=== PATIENT | female | born 1945 | race Caucasian/White ===

== ENCOUNTER 2017-04-03 08:00 | Outpatient (CLI) | payer MEDICARE ==
[2017-04-03 15:09] LABS: BASOPHILS % (AUTO) 0.4 %; EOSINOPHILS # (AUTO) 0.1 10^3/uL (0.0-0.7); EOSINOPHILS % (AUTO) 1.6 %; LYMPHOCYTES # (AUTO) 1.1 10^3/uL (1.5-3.5); LYMPHOCYTES % (AUTO) 26.3 %; MEAN CORPUSCULAR HEMOGLOBIN 31.1 pg (27.0-31.0); MEAN CORPUSCULAR HGB CONC 34.3 g/dL (32.0-36.0); MEAN CORPUSCULAR VOLUME 90.7 fL (81.0-99.0); MEAN PLATELET VOLUME 10.7 fL (7.9-10.8); MONOCYTES # (AUTO) 0.3 10^3/uL (0.0-1.0); MONOCYTES % (AUTO) 8.1 %; NEUTROPHILS # (AUTO) 2.7 10^3/uL (1.5-6.6); NEUTROPHILS % (AUTO) 63.6 %; NUCLEATED RED BLOOD CELLS AUTO 0.1 /100WBC; RED BLOOD COUNT 4.19 10^6/uL (4.20-5.40); RED CELL DISTRIBUTION WIDTH 12.3 % (12.0-15.0); UNCORRECTED WHITE BLOOD COUNT 4.2 x10^3/uL; WHITE BLOOD COUNT 4.2 x10^3/uL (4.8-10.8)
[2017-04-03 15:25] LABS: ALBUMIN/GLOBULIN RATIO 1.3 (1.0-2.2); BILIRUBIN,TOTAL 0.6 mg/dL (0.2-1.0); BUN - BLOOD UREA NITROGEN 21 mg/dL (6-20); CALCIUM 9.5 mg/dL (8.5-10.3); CARBON DIOXIDE - CO2 27 mmol/L (21-32); CHLORIDE 103 mmol/L (101-111); CHOL/HDL RATIO 3.2 (<4.4); CHOLESTEROL 257 mg/dL; CREATININE 0.7 mg/dL (0.4-1.0); GFR - MDRD 83 (>89); GLUCOSE 93 mg/dL (70-100); HDL CHOLESTEROL 80 mg/dL; SODIUM 139 mmol/L (135-145); TOTAL PROTEIN 6.8 g/dL (6.7-8.2); TRIGLYCERIDES 82 mg/dL; VLDL CHOLESTEROL 16 mg/dL
== END 2017-04-03 08:01 | disposition home or self-care (01) ==
LOC: LAB.R 08:00
PROVIDERS: ATTEND Nurse Practitioner Primary Care
DX: Z00.00 Encounter for general adult medical examination without abnormal findings (principal); Z51.81 Encounter for therapeutic drug level monitoring; R63.5 Abnormal weight gain; M19.90 Unspecified osteoarthritis, unspecified site; E78.5 Hyperlipidemia, unspecified
CPT/HCPCS: 80053; 80061; 85025

== ENCOUNTER 2017-04-09 07:51 | Outpatient (CLI) | payer MEDICARE ==
--- NOTE | 2017-04-10 10:17 | Mammography Report ---
DIGITAL SCREENING MAMMOGRAM: 04/09/2017 COMPARISON: 09/01/2015, 04/20/2014, 04/03/2013, 12/27/2011, 12/22/2010, 12/22/2009. TECHNIQUE: Bilateral digital CC and MLO projections. FINDINGS: There are scattered fibroglandular densities. There is no dominant mass, architectural dis tortion, skin thickening, suspicious microcalcifications or interval change. IMPRESSION: NEGATIVE. BIRADS CATEGORY 1-NEGATIVE. RECOMMENDATION: SUGGEST RETURN TO ROUTINE SCREENING IN 12 MONTHS. STANDARD QUALIFYING STATEMENTS 1. This examination was reviewed with the aid of Computer-Aided Detection (CAD). 2. A negative or benign imaging report should not delay biopsy if clinically suspicious findings are present. Consider surgical consultation if warranted. More than 5% of cancers are not identified by i maging. 3. Dense breasts may obscure an underlying neoplasm. JOB #: [id number] EXT JOB #:[id number]
== END 2017-04-09 07:52 | disposition home or self-care (01) ==
LOC: DI 07:51
PROVIDERS: ATTEND Nurse Practitioner Primary Care
DX: Z12.31 Encounter for screening mammogram for malignant neoplasm of breast (principal)
CPT/HCPCS: 77067

== ENCOUNTER 2017-07-26 07:41 | Outpatient (CLI) | payer MEDICARE ==
[2017-07-26 08:50] LABS: CHOLESTEROL 196 mg/dL; HDL CHOLESTEROL 66 mg/dL; LDL CHOLESTEROL,CALCULATED 102 mg/dL; LDL/HDL RATIO 1.5 (<4.4); VLDL CHOLESTEROL 28 mg/dL
== END 2017-07-26 07:42 | disposition home or self-care (01) ==
LOC: LAB 07:41
PROVIDERS: ATTEND Nurse Practitioner Primary Care
DX: E78.5 Hyperlipidemia, unspecified (principal); Z51.81 Encounter for therapeutic drug level monitoring
CPT/HCPCS: 36415; 80061; 83721

== ENCOUNTER 2018-12-25 07:42 | Outpatient (CLI) | payer MEDICARE ==
[2018-12-25 08:51] LABS: ALBUMIN 3.9 g/dL (3.2-5.5); ALBUMIN/GLOBULIN RATIO 1.3 (1.0-2.2); ALKALINE PHOSPHATASE 56 IU/L (42-121); ALT ALANINE AMINOTRANSFERASE 19 IU/L (10-60); AST ASPARTATE AMINOTRANSFERASE 24 IU/L (10-42); BILIRUBIN,TOTAL 0.5 mg/dL (0.2-1.0); BUN - BLOOD UREA NITROGEN 20 mg/dL (6-20); CALCIUM 9.2 mg/dL (8.5-10.3); CARBON DIOXIDE - CO2 26 mmol/L (21-32); CHLORIDE 97 mmol/L (101-111); CHOLESTEROL 270 mg/dL; CREATININE 0.7 mg/dL (0.4-1.0); GFR - MDRD 82 (>89); GLUCOSE 106 mg/dL (70-100); HDL CHOLESTEROL 68 mg/dL; LDL CHOLESTEROL,CALCULATED 173 mg/dL; LDL/HDL RATIO 2.5 (<4.4); SODIUM 134 mmol/L (135-145); TOTAL PROTEIN 6.9 g/dL (6.7-8.2); VLDL CHOLESTEROL 29 mg/dL
--- NOTE | 2018-12-26 11:46 | Ultrasound Report ---
Reason: INGUINAL MASS Procedure Date: 12/25/2018 Accession Number: [id number] / [id number] Procedure: US - Pelvic Limited or F/U CPT Code: FULL RESULT: EXAM: LIMITED PELVIS ULTRASOUND EXAM DATE: 12/25/2018 08:15 AM. CLINICAL HISTORY: Inguinal mass. COMPARISON: None. TECHNIQUE: Real-time scanning was performed of the right lower quadrant with static images obtained. FINDINGS: Targeted evaluation of the left inguinal region was performed. Radiation Control Technician static images acquired and reviewed. At the site of clinical concern, there is a prominent 1.4 x 0.8 x 1.2 cm lymph node with thickened cortex. No abnormal focal thickening or calcifications. No additional mass, collection or bulky adenopathy. IMPRESSION: 1. Prominent 1.4 x 0.8 x 1.2 cm lymph node with mildly thickened cortex noted at the site of clinical concern. 2. No additional mass, collection or bulky adenopathy. RADIA
== END 2018-12-25 07:43 | disposition home or self-care (01) ==
LOC: DI 07:42
PROVIDERS: ATTEND Nurse Practitioner
DX: R59.0 Localized enlarged lymph nodes (principal); R19.00 Intra-abdominal and pelvic swelling, mass and lump, unspecified site; E78.5 Hyperlipidemia, unspecified
CPT/HCPCS: 36415; 76857; 80053; 80061; 83721

== ENCOUNTER 2020-08-11 09:18 | Outpatient (CLI) | payer MEDICARE ==
--- NOTE | 2020-08-11 16:08 | XRAY Report ---
PROCEDURE: Knee 3 View RT INDICATIONS: PAIN IN RT KNEE TECHNIQUE: 3 views of the right knee(s) were acquired. COMPARISON: None. FINDINGS: Bones: No fractures or dislocations. No suspicious bony lesions. Mild tricompartmental osteoarthrit ic degenerative change. Soft tissues: No joint effusion. No suspicious soft tissue calcifications. IMPRESSION: Mild right knee tricompartmental osteoarthritis. Reviewed by: Lana Saravia MD, PhD on 08/11/2020 4:06 PM PDT Approved by: Lana Saravia MD, PhD on 08/11/2020 4:06 PM PDT Station ID: [id number]
== END 2020-08-11 09:19 | disposition home or self-care (01) ==
LOC: DI 09:18
PROVIDERS: ATTEND Registered Nurse
DX: M17.11 Unilateral primary osteoarthritis, right knee (principal)

== ENCOUNTER 2021-06-30 08:50 | Outpatient (CLI) | payer MEDICARE ==
[2021-06-30 09:22] LABS: BASOPHILS % (AUTO) 0.3 %; EOSINOPHILS # (AUTO) 0.1 10^3/uL (0.0-0.7); EOSINOPHILS % (AUTO) 3.2 %; HCT - HEMATOCRIT 40.5 % (37.0-47.0); HGB - HEMOGLOBIN 13.7 g/dL (12.0-16.0); LYMPHOCYTES # (AUTO) 1.2 10^3/uL (1.5-3.5); LYMPHOCYTES % (AUTO) 35.7 %; MEAN CORPUSCULAR HEMOGLOBIN 30.8 pg (27.0-31.0); MEAN CORPUSCULAR HGB CONC 33.8 g/dL (32.0-36.0); MEAN PLATELET VOLUME 10.7 fL (7.9-10.8); MONOCYTES # (AUTO) 0.3 10^3/uL (0.0-1.0); MONOCYTES % (AUTO) 7.9 %; NEUTROPHILS # (AUTO) 1.8 10^3/uL (1.5-6.6); NEUTROPHILS % (AUTO) 52.9 %; PLT - PLATELET COUNT 208 10^3/uL (130-450); RED BLOOD COUNT 4.45 10^6/uL (4.20-5.40); WHITE BLOOD COUNT 3.4 x10^3/uL (4.8-10.8)
[2021-06-30 09:44] LABS: ALBUMIN 4.2 g/dL (3.2-5.5); ALBUMIN/GLOBULIN RATIO 1.4 (1.0-2.2); ALKALINE PHOSPHATASE 52 IU/L (42-121); ALT ALANINE AMINOTRANSFERASE 20 IU/L (10-60); AST ASPARTATE AMINOTRANSFERASE 22 IU/L (10-42); BILIRUBIN,TOTAL 0.6 mg/dL (0.2-1.0); BUN - BLOOD UREA NITROGEN 17 mg/dL (6-20); CALCIUM 9.2 mg/dL (8.5-10.3); CARBON DIOXIDE - CO2 27 mmol/L (21-32); CHLORIDE 101 mmol/L (101-111); CHOL/HDL RATIO 3.6 (<4.4); CHOLESTEROL 288 mg/dL; CREATININE 0.7 mg/dL (0.4-1.0); GFR - MDRD 82 (>89); GLUCOSE 98 mg/dL (70-100); HDL CHOLESTEROL 81 mg/dL; LDL CHOLESTEROL,CALCULATED 187 mg/dL; LDL/HDL RATIO 2.3 (<4.4); POTASSIUM 4.2 mmol/L (3.5-5.0); SODIUM 136 mmol/L (135-145); TOTAL PROTEIN 7.1 g/dL (6.7-8.2); TRIGLYCERIDES 101 mg/dL; VLDL CHOLESTEROL 20 mg/dL
== END 2021-06-30 08:51 | disposition home or self-care (01) ==
LOC: LAB 08:50
PROVIDERS: ATTEND Registered Nurse
DX: R42 Dizziness and giddiness (principal); E78.00 Pure hypercholesterolemia, unspecified
CPT/HCPCS: 36415; 80053; 80061; 83721; 84443; 85025

== ENCOUNTER 2021-06-30 09:30 | Outpatient (CLI) | payer MEDICARE | END 2021-06-30 09:31 | disposition home or self-care (01) | LOC: RT 09:30 | PROVIDERS: ATTEND Registered Nurse | DX: R42 Dizziness and giddiness (principal); E78.00 Pure hypercholesterolemia, unspecified | CPT/HCPCS: 36415; 80053; 80061; 83721; 84443; 85025; 93005 ==

== ENCOUNTER 2021-10-03 09:21 | Outpatient (CLI) | payer MEDICARE ==
--- NOTE | 2021-10-03 13:12 | Mammography Report ---
BILATERAL DIGITAL SCREENING MAMMOGRAM 3D/2D: 10/03/2021 CLINICAL: Family history of breast cancer. Routine screening. Comparison is made to exams dated: 04/09/2017 mammogram, 09/01/2015 mammogram, 04/20/2014 mammogram, 06/03/2012 mammogram, and 12/27/2011 mammogram - [facility]. There are scattered fib roglandular elements in both breasts. No significant masses, calcifications, or other findings are seen in either breast. There has been no significant interval change. IMPRESSION: NEGATIVE There is no mammographic evidence of malignancy. A 1 year screening mammogram is recommended. This exam was interpreted at Station ID: [id number]. NOTE: For mammograms, a report in lay terms will be sent to the patient. Approximately 15% of breast malignancies will not be visualized mammographically. In the management of a palpable breast mass, a negative mammogram must not discourage biopsy of a clinically suspicious lesion. Electronically Signed By: Jan Wren M.D., jr/yoli:10/03/2021 09:55:16 ACR BI-RADS Category 1: Negative 3341F PARENCHYMAL PATTERN: (A) - The breast(s) demonstrate(s) scattered fibroglandular densities. BI-RADS CATEGORY: (1) - 1 RECOMMENDATION: (ANNUAL) - Recommend routine annual screening mammography. 20221004 1 year screening LATERALITY: (B)
== END 2021-10-03 09:22 | disposition home or self-care (01) ==
LOC: DI.N 09:21
PROVIDERS: ATTEND Registered Nurse
DX: Z12.31 Encounter for screening mammogram for malignant neoplasm of breast (principal); Z80.3 Family history of malignant neoplasm of breast

== ENCOUNTER 2022-01-03 08:37 | Day surgery (SDC) | payer MEDICARE ==
--- NOTE | 2022-01-03 08:19 | ANESTHESIA ---
Pre-Anesthesia VS, & Labs - Diagnosis screening, positive cologuard - Procedure colonoscopy - NPO >8 hours Last Fluid Intake: am prep - Is Patient ?: No - Lab Results Lab results reviewed: Yes Home Medications and Allergies Home Medications: Ambulatory Orders Ibuprofen [Motrin] 600 mg PO Q6H PRN 12/26/21 Ibuprofen [Motrin] 600 mg PO Q6H PRN 12/26/21 Allergies/Adverse Reactions: Allergies Allergy/AdvReac Type Severity Reaction Status Date / Time No Known Drug Allergies Allergy Verified 12/26/21 14:10 Anes History & Medical History - Anesthetic History Anesthesia Complications: reports: No previous complications Family history of Anesthesia Complications: Denies Family history of Malignant Hyperthermia: Denies - Medical History Cardiovascular: reports: None Pulmonary: reports: None Gastrointestinal: reports: None Urinary: reports: None Neuro: reports: None Musculoskeletal: reports: None - Surgical History General: reports: Colonoscopy Exam General: Alert, Oriented x3, Cooperative Dental: WNL Mouth Openin Fingerbreadth Neck Mobility: Normal Mallampati classification: II Respiratory: Lungs clear, Normal breath sounds, No respiratory distress Cardiovascular: Regular rate Neurological: Normal speech Mental/Cognitive Status: Alert/Oriented X3, Normal for patient Cognitive Status: Within normal limits Plan Anesthesia Type: Total IV Consent for Procedure(s) Verified and Reviewed: Yes Code Status: Attempt Resuscitation ASA classification: 2-Mild systemic disease Is this case an emergency?: No
[2022-01-03] MEDS ORDERED: LACTATED RINGERS 1,000 ML IV ONE ×2 (09:14→10:28)
[2022-01-03] MEDS ORDERED: MIDAZOLAM 2 MG/2 ML VIAL ONE (09:56)
[2022-01-03 11:13] VITALS: BP 116/68
--- NOTE | 2022-01-03 12:02 | ANESTHESIA POST OP EVALUATION ---
Anesthesia Post Eval - Post Anesthesia Eval Vitals: Last Vital Signs Temp 36.1 C L 01/03/22 11:00 Pulse 70 01/03/22 11:00 Resp 16 01/03/22 11:00 BP 116/68 01/03/22 11:00 Pulse Ox 99 01/03/22 11:00 CV Function Including HR & BP: Stable Pain Control: Satisfactory Nausea & Vomiting: Negative Mental Status: Baseline Respiratory Status: Airway Patent Hydration Status: Satisfactory Anesthesia Complications: None
== END 2022-01-03 08:38 | disposition home or self-care (01) ==
LOC: SDS 08:37
PROVIDERS: ATTEND Surgery
PROC: 0DBK8ZZ Excision of Ascending Colon, Via Natural or Artificial Opening Endoscopic (ICD-10-PCS; principal; 2022-01-03 09:45)
DX: R19.5 Other fecal abnormalities (principal); K63.5 Polyp of colon; K64.8 Other hemorrhoids; K57.30 Diverticulosis of large intestine without perforation or abscess without bleeding
CPT/HCPCS: 45380; J7120

== ENCOUNTER 2023-10-21 07:50 | Observation (INO) | payer MEDICARE ==
--- NOTE | 2023-10-21 09:40 | ED Physician Documentation ---
History of Present Illness - Stated complaint Stated Complaint: LT WRIST LAC - Chief complaint Chief Complaint: Wound - History obtained from History obtained from: Patient - History of Present Illness Timing: How many weeks ago (1) Pain level max: 9 Pain level now: 9 - Additonal information Additional information: 78-year-old female presents to the emergency department complaining of redness, swelling and drainage to a wound on the left wrist. She states that a week ago her dogs were fighting, she went to separate them and sustained a laceration on the left wrist from a collar. She was seen at [facility] in [place]. She states that she had deep sutures placed and then superficial sutures placed. She states the next day she noted a red hot, swollen area. She went to the walk-in clinic and was given a dose of IM Rocephin and placed on oral Bactrim. She went back 2 days later had another dose of Rocephin. She states that today the area is more red, swollen, tender and has pus draining from the wound. 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 - Present Medications Home Medications: Ambulatory Orders Medication Instructions Recorded Confirmed Ibuprofen [Motrin] 600 mg PO Q6H PRN 12/26/21 10/21/23 Sulfamethox/Trimeth 800/160 1 tablet PO BID 10/21/23 10/21/23 [Bactrim Ds] - Allergies Allergies/Adverse Reactions: Allergies Allergy/AdvReac Type Severity Reaction Status Date / Time No Known Drug Allergies Allergy Verified 10/21/23 08:01 - Social History Does the pt smoke?: No Smoking Status: Never smoker Does the pt drink ETOH?: No Does the pt have substance abuse?: No - Immunizations Immunizations are current?: Yes - POLST Patient has POLST: No PD ED PE NORMAL - Vitals Vital signs reviewed: Yes - General General: Alert and oriented X 3, No acute distress - HEENT HEENT: Moist mucous membranes - Derm Derm: Warm and dry - Extremities Extremities: Other (Swelling and erythema to the dorsum of swelling and erythema to the volar aspect of the left wrist where the laceration was repaired. There is purulent drainage. Mild streaking up the arm. No pain in the deep spaces of the hand. No pain with movement of the fingers. Neurovascular intact.) - Neuro Neuro: Alert and oriented X 3 - Psych Psych: Normal mood, Normal affect Results - Vitals Vitals: Vital Signs - 24 hr 10/21/23 10/21/23 07:56 11:57 Temperature 36.4 C L Heart Rate 70 57 L Respiratory 20 20 Rate Blood Pressure 150/62 H 144/64 H O2 Saturation 100 98 Oxygen O2 Source Room air - Labs Labs: Microbiology 10/21/23 11:06 Wound Culture - Preliminary Arm - Left Laboratory Tests 10/21/23 10/21/23 09:44 09:44 WBC 4.5 L RBC 4.20 Hgb 12.9 Hct 38.2 MCV 91.0 MCH 30.7 MCHC 33.8 RDW 12.4 Plt Count 263 MPV 10.4 Neut # (Auto) 3.1 Lymph # (Auto) 0.9 L [place] # (Auto) 0.4 Eos # (Auto) 0.1 Baso # (Auto) 0.0 Absolute Nucleated RBC 0.00 Nucleated RBC % 0.0 Sodium 135 Potassium 4.4 Chloride 102 Carbon Dioxide 26 Anion Gap 7.0 BUN 18 Creatinine 0.9 Estimated GFR (MDRD) 61 L Glucose 108 H Calcium 9.9 Total Bilirubin 0.3 AST 32 ALT 32 Alkaline Phosphatase 64 Total Protein 7.5 Albumin 4.3 Globulin 3.2 Albumin/Globulin Ratio 1.3 Procedures - General procedure General procedure: L wrist - All sutures were removed. The wound was opened and irrigated with 250 mL of normal saline. Wound culture obtained. Xeroform was then placed over the open wound and a clean dressing was applied. PD Medical Decision Making - ED course Complexity details: reviewed results, re-evaluated patient, considered differential, d/w patient, d/w safety consultant ED course: Patient with an infected laceration to the left wrist. Discussed the case with Dr. Jacques, orthopedics who recommends removal of all sutures, bedside irrigation and leaving the wound open, covering with Xeroform. The sutures were removed, the wound was irrigated, Xeroform was applied. Given that she has been on antibiotics for a week including 2 doses of IM Rocephin and is continuing to worsen, we will place her in observation on IV vancomycin and Unasyn to ensure that she improves overnight. Wound culture was sent. Discussed the case with Dr. Ross, hospitalist who accepts. This document was made in part using voice recognition software. While efforts are made to proofread this document, sound alike and grammatical errors may occur. Departure - Departure Disposition: ED Place in Observation Clinical Impression: Wound infection Cellulitis Qualifiers: Site of cellulitis: extremity Site of cellulitis of extremity: upper extremity Laterality: left Qualified Code(s): L03.114 - Cellulitis of left upper limb Condition: Stable Discharge Date/Time: 10/21/23 13:07
[2023-10-21] MEDS: HYDROmorphone 1 MG/ML CARPUJECT IVP STA (09:57)
[2023-10-21 09:58] LABS: BASOPHILS % (AUTO) 0.2 %; EOSINOPHILS # (AUTO) 0.1 10^3/uL (0.0-0.7); EOSINOPHILS % (AUTO) 1.3 %; HCT - HEMATOCRIT 38.2 % (37.0-47.0); HGB - HEMOGLOBIN 12.9 g/dL (12.0-16.0); LYMPHOCYTES # (AUTO) 0.9 10^3/uL (1.5-3.5); LYMPHOCYTES % (AUTO) 20.5 %; MEAN CORPUSCULAR HEMOGLOBIN 30.7 pg (27.0-31.0); MEAN CORPUSCULAR HGB CONC 33.8 g/dL (32.0-36.0); MEAN PLATELET VOLUME 10.4 fL (7.9-10.8); MONOCYTES # (AUTO) 0.4 10^3/uL (0.0-1.0); MONOCYTES % (AUTO) 8.6 %; NEUTROPHILS # (AUTO) 3.1 10^3/uL (1.5-6.6); PLT - PLATELET COUNT 263 10^3/uL (130-450); RED CELL DISTRIBUTION WIDTH 12.4 % (12.0-15.0); WHITE BLOOD COUNT 4.5 x10^3/uL (4.8-10.8)
[2023-10-21 10:12] LABS: ALBUMIN 4.3 g/dL (3.2-5.5); ALBUMIN/GLOBULIN RATIO 1.3 (1.0-2.2); BILIRUBIN,TOTAL 0.3 mg/dL (0.2-1.0); CALCIUM 9.9 mg/dL (8.5-10.3); CREATININE 0.9 mg/dL (0.6-1.3); POTASSIUM 4.4 mmol/L (3.5-4.5); TOTAL PROTEIN 7.5 g/dL (6.4-8.9)
[2023-10-21] MEDS: LIDOCAINE-EPINEPH-TETRACAINE 3 ML SYRINGE TOP STA (10:33)
[2023-10-21] MEDS: AMPICILLIN/SULBACTAM 3 GM in SODIUM CHLORIDE 0.9% MINIBAG 100 ML IV STA (11:43)
--- NOTE | 2023-10-21 11:57 | PHARMACY PROGRESS NOTE ---
- Therapy Status Therapy status: Awaiting steady state Basis for treatment: Empirical Treatment indication: WOUND Trough goal: AUC 400-600 Concurrent antibiotics: UNASYN - JAMES Risk Risk level for Acute Kidney Injury: Moderate Acute Kidney Injury risk factors: Baseline CrCl <50 - Monitoring and Recommendation Clinical response to treatment: Lab Results 10/21/23 09:44 BUN 18 Creatinine 0.9 Estimated GFR (MDRD) 61 L Monitoring plan: Daily serum creatinine Next trough due (date/time): TBD, PRIOR TO 4TH DOSE Areas for additional monitoring: Therapy de-escalation based on culture results Pharmacy recommendation: Continue current regime (Initiate Vancomycin therapy at 1250mg Q24h with anticipated AUC of 460.)
[2023-10-21] MEDS ORDERED: SODIUM CHLORIDE FLUSH 0.9% 10 ML SYRINGE IVP PRN (12:51)
[2023-10-21] MEDS ORDERED: ONDANSETRON ODT 4 MG TABLET TL PRN (12:51)
[2023-10-21] MEDS ORDERED: oxyCODONE 5 MG TABLET PO PRN (12:51)
[2023-10-21] MEDS ORDERED: IBUPROFEN 400 MG TABLET PO PRN (12:51)
--- NOTE | 2023-10-21 12:59 | HISTORY & PHYSICAL EXAMINATION ---
Chief Complaint - Chief Complaint Chief Complaint: Patient left wrist pain and swelling History of Present Illness - Admitted From Admitted From:: ED - History Obtained From History obtained from: patient Exam Limitations: none - History of Present Illness HPI Comment/Other: 78-year-old female who presents to the emergency department about 8 days after sustaining an injury to her left wrist. She pulled apart 2 dogs that were fighting and as she the she sustained a laceration from a bracelet that was on her left arm. She went to the emergency department at [facility] in [place] immediately. At that time she had a double layer closure of this left wrist laceration. The next day she noted that the area around the laceration was red hot and swollen. She went to walk-in clinic at [facility] and was given an IM dose of Rocephin and placed on oral Bactrim. 2 days later she did not have improvement and went back for an additional dose of Rocephin she presented to the emergency department today with increasing pain redness swelling and purulent drainage from the wound. 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 Walks 4-5 miles every day. has family support from a daughter in [place]. - Substance History Use: Uses substance without health or social issues: NONE Dependence: Experiences withdrawal or developed tolerances: NONE - POLST Patient has POLST: No POLST Status: Full Code (Ever Kelly, daughter is DPOA) Meds/Allgy - Home Medications Home Medications: Ambulatory Orders Medication Instructions Recorded Confirmed Ibuprofen [Motrin] 600 mg PO Q6H PRN 12/26/21 10/21/23 Sulfamethox/Trimeth 800/160 1 tablet PO BID 10/21/23 10/21/23 [Bactrim Ds] - Allergies Allergies/Adverse Reactions: Allergies Allergy/AdvReac Type Severity Reaction Status Date / Time No Known Drug Allergies Allergy Verified 10/21/23 08:01 Review of Systems - Constitutional Constitutional: reports: Fatigue, Malaise. denies: Fever, Chills - Eyes Eyes: denies: Blurred vision - Ears, Nose & Throat Ears, Nose & Throat: denies: Ear pain, Vertigo - Cardiovascular Cariovascular: denies: Irregular heart rate - Respiratory Respiratory: denies: Cough - Gastrointestinal Gastrointestinal: denies: Abdominal pain, Diarrhea, Change in bowel habits - Genitourinary Genitourinary: denies: Dysuria - Musculoskeletal Musculoskeletal: reports: Other (left wrist painful, but able to move joint. no pain on flexion/extension, no pain on pronation or supination of her wrist.) - Integumentary Integumentary: reports: Other (redness of the skin around the laceration) - Neurological Neurological: denies: General weakness, Focal weakness, Numbness - Psychiatric Psychiatric: denies: Depression - Endocrine Endocrine: denies: Polyuria, Polydypsia - Hematologic/Lymphatic Hematologic/Lymphatic: denies: Bruising - All Other Systems All Other Systems: reports: Reviewed and negative Prior Level of Functionality: well. lives alone. takes care of her home and her dog. no assistive devices. no meds. Seedawna Mcdonald at Medical Exam - Vital Signs Vital Signs: Vital Signs x48h Temp Pulse Resp BP Pulse Ox 10/21/23 11:57 57 L 20 144/64 H 98 10/21/23 07:56 36.4 C L 70 20 150/62 H 100 - Physical Exam General Appearance: positive: No acute distress Eyes Bilateral: positive: Normal inspection ENT: positive: ENT inspection nml Neck: positive: Nml inspection Respiratory: positive: Chest non-tender, No respiratory distress, Breath sounds nml Cardiovascular: positive: Regular rate & rhythm Peripheral Pulses: positive: 2+ Abdomen: positive: No distention Skin: positive: Laceration (cm) (5cm lac with surrounding warmth and erythema. There is no pain on movement of the hand there is some lymphangitic streaking on the volar forearm.), Other Extremities: positive: Other (see skin exam, otherwise WNL) Neurologic/Psychiatric: positive: Oriented x3 Conclusion/Plan - Problem List (1) Wound infection Conclusion/Plan: Wound infection with cellulitis not improving in the outpatient setting. Toshia retana will be admitted for observation overnight. She will be placed on IV Unasyn every 6 hours. Additionally she will get a dose of vancomycin. Cultures of the wound were sent from the emergency department. This does not appear to be sepsis. The patient does not have a fever she does not have an elevated white blood cell count. She does not have any tachycardia or tachypnea. She appears well overall the wound has been opened and cultured and debrided. There is a dressing which was placed by the emergency department. I will take this down in the morning and further evaluate the wound. I think is reasonable that she will discharge home in the morning as we convert to oral antibiotics. - Lab Results Fish Bones: 10/21/23 09:44 10/21/23 09:44
[2023-10-21] MEDS: VANCOMYCIN INJ 1 GM, VANCOMYCIN INJ 250 MG in SODIUM CHLORIDE 0.9% 250 ML IV SCH (13:31)
[2023-10-21] MEDS: diphenhydrAMINE INJ 50 MG/ML VIAL IVP PRN (15:04)
--- NOTE | 2023-10-21 16:40 | PHARMACY PROGRESS NOTE ---
- Best Possible Medication History Admit Date and Time: 10/21/23 1311 Processed by: Pharmacy Medications reviewed in ED?: Yes Medication History completed: In progress Patient Interview: Pt unable to participate (PT SLEEPING) Secondary Source(s): Insurance records As the person ultimately responsible for medication therapy, providers are able to order a medication from an existing home medication list in [facility] via the "Reconcile Routine" prior to Confirmation of that medication by legal support assistant. Such practice is discouraged except when the physician, in their clinical judgment, deems that a medical need exists for a medication without regard to previous use.
[2023-10-21] MEDS: AMPICILLIN/SULBACTAM 1.5 GM in SODIUM CHLORIDE 0.9% MINIBAG 100 ML IV SCH (17:53)
[2023-10-21] MEDS: SODIUM CHLORIDE FLUSH 0.9% 10 ML SYRINGE IVP SCH (17:54)
[2023-10-21] MEDS: ACETAMINOPHEN 325 MG TABLET PO PRN (19:53)
[2023-10-22 05:08] LABS: BASOPHILS % (AUTO) 0.2 %; EOSINOPHILS # (AUTO) 0.1 10^3/uL (0.0-0.7); EOSINOPHILS % (AUTO) 2.4 %; HCT - HEMATOCRIT 34.6 % (37.0-47.0); LYMPHOCYTES # (AUTO) 1.3 10^3/uL (1.5-3.5); LYMPHOCYTES % (AUTO) 30.4 %; MEAN CORPUSCULAR HEMOGLOBIN 29.5 pg (27.0-31.0); MEAN CORPUSCULAR HGB CONC 31.8 g/dL (32.0-36.0); MEAN CORPUSCULAR VOLUME 92.8 fL (81.0-99.0); MONOCYTES # (AUTO) 0.4 10^3/uL (0.0-1.0); MONOCYTES % (AUTO) 10.1 %; NEUTROPHILS # (AUTO) 2.3 10^3/uL (1.5-6.6); NEUTROPHILS % (AUTO) 56.4 %; PLT - PLATELET COUNT 231 10^3/uL (130-450); RED BLOOD COUNT 3.73 10^6/uL (4.20-5.40); RED CELL DISTRIBUTION WIDTH 12.4 % (12.0-15.0); WHITE BLOOD COUNT 4.2 x10^3/uL (4.8-10.8)
[2023-10-22 05:22] LABS: CREATININE 0.8 mg/dL (0.6-1.3); POTASSIUM 4.2 mmol/L (3.5-4.5)
[2023-10-22] MEDS ORDERED: SODIUM CHLORIDE 0.9% MINIBAG 100 ML IV ONE ×2 (11:03→11:04)
--- NOTE | 2023-10-22 13:20 | Discharge Plan ---
Discharge Plan Problem Reviewed?: Yes Disposition: Home, Self Care Condition: Good Prescriptions: Amox/Clav 875/125 [Augmentin 875/125 Tab] 1 tablet PO Q12H 7 Days #14 tablet Diet: Regular Activity Restrictions: Additional Comments (can use your left hand as needed, if it hurts, don't do it.) Shower Restrictions: No (OK to shower with wound covered ([employer] N T[employer]RAZ[employer] works great for this)) Driving Restrictions: No Weight Bearing: Full Weight Instruction Topics: Wound Culture Health Concerns: I think because the wound was so deep there was probably some bacteria deep within it that did not get washed out. Because of this the wound had to be reopened and now it should heal just fine with the assistance of antibiotics. Start the Augmentin this evening. We have sent that into the community pharmacy across the street. Change the dressing every day. Call Dr. Lu's office this afternoon or tomorrow morning and they will find a time to see you on . Come back to the hospital immediately if you start to run fevers or feel worse. Plan of Treatment: Finish all of the Augmentin. This medication can cause you to have some loose stools. Take the medication with food as it can cause some nausea.We will follow-up on your cultures and there is always the chance that we will need to change your antibiotic therapy. Care Goals: to feel better and have your arm heal!! Also talk to your primary care doctor about the POLST and about advance care planning. You are well and you look great but it is always good to have plans in place should a catastrophic medical event occur. Additional Instructions or Follow Up instructions: Dr Jacques [phone] No Smoking: If you smoke, Please STOP! Call for help.
--- NOTE | 2023-10-22 13:29 | DISCHARGE SUMMARY ---
"Discharge Summary Admit Date: 10/21/23 Discharge Date: 10/22/23 Discharging Provider: Moriah Nieves PA-C Primary Care Provider: Amber Mcdonald Code Status: Attempt Resuscitation Condition at Discharge: Good Discharge Disposition: 01 Home, Self Care - DIAGNOSES Admission Diagnoses: Wound infection left wrist Discharge Diagnoses with Status of Each Condition: wound infection/cellulitis left wrist Improved markedly with overnight admission for IV antibiotics, 2 doses of vancomycin and Unasyn for 24 hours were given. The wound was opened in the emergency department by the emergency department physician. Reexamination of the wound in the morning revealed great improvement with minimal drainage. Patient showed no signs of sepsis during her stay - HPI History of Present Illness: From admission H&P: 78-year-old female who presents to the emergency department about 8 days after sustaining an injury to her left wrist. She pulled apart 2 dogs that were fighting and as she the she sustained a laceration from a bracelet that was on her left arm. She went to the emergency department at [facility] in [place] immediately. At that time she had a double layer closure of this left wrist laceration. The next day she noted that the area around the l aceration was red hot and swollen. She went to walk-in clinic at [facility] and was given an IM dose of Rocephin and placed on oral Bactrim. 2 days later she did not have improvement and went back for an additional dose of Rocephin she presented to the emergency department today with increasing pain redness swelling and purulent drainage from the wound. - CONSULTS | PROCEDURES Consultations: Ortho- Dr Jacques, who will follow this patient in clinic Procedures: ED wound exploration and culture - HOSPITAL COURSE Hospital Course: Admitted with left wrist cellulitis and wound infection after traumatic laceration. She had failed outpatient treatment of this after being seen at the walk-in clinic twice and given IM Rocephin twice. She presented to the emergency department with increased pain and swelling. She does not have any systemic signs of infection she not have any elevated white blood cell count. She was given vancomycin and Unasyn in the emergency department this therapy was continued on the floor. She did well with marked improvement overnight complete recession of the erythema within the marked lines and minimal to no drainage of her wound which was opened in the emergency department. She did not run any fevers while admitted she not have any tachycardia or hypotension. She was discharged home in stable condition. she will follow-up with orthopedics in 48 hours. - ALLERGIES Allergies/Adverse Reactions: Allergies Allergy/AdvReac Type Severity Reaction Status Date / Time No Known Drug Allergies Allergy Verified 10/21/23 08:01 - MEDICATIONS Home Medications: Ambulatory Orders Medication Instructions Recorded Confirmed Ibuprofen [Motrin] 600 mg PO Q6H PRN 12/26/21 10/21/23 Amox/Clav 875/125 [Augmentin 1 tablet PO Q12H 7 Days #14 tablet 10/22/23 875/125 Tab] - PHYSICAL EXAM AT DISCHARGE General Appearance: positive: No acute distress, Alert Eyes Bilateral: positive: Normal inspection ENT: positive: ENT inspection nml Neck: positive: Nml inspection Respiratory: positive: No respiratory distress Cardiovascular: positive: Regular rate & rhythm Peripheral Pulses: positive: 2+ Abdomen: positive: No distention Skin: positive: Color nml Extremities: positive: Non-tender, Full ROM (5cm laceration at left volar wrist/forearm. there is minimal erythema, no lymphangitic streaking. There is no tenderness or swelling in the palm, there is not pain on ROM of the wrist thi s AM) Neurologic/Psychiatric: positive: Oriented x3, Motor nml, Sensation nml - LABS Result Diagrams: 10/22/23 04:28 10/22/23 04:28 - DIAGNOSTIC IMAGING Diagnostic Imaging Results Comments: no imaging - FOLLOW UP Follow Up: Dr Jacques, 48 hours - TIME SPENT Time Spent in Discharge (Minutes): 30"
--- NOTE | 2023-10-22 13:30 | ADVANCE CARE PLANNING NOTE ---
Advance Care Planning - Planning Encounter Date: 10/22/23 Time: 11:00 Purpose: to introduce the concept of advanced care planning, and what she might like should she not be able to communicate her desires. Parties in Attendance: Patient, Moriah Nieves LAUREN Decisional Capacity of the Patient: Well. oriented to her circumstances - Encounter Subjective/Patient's Story: Acute health event with infection of her left forearm secondary to traumatic wound, and closure which became infected. She lives alone with her dog. She walks 4 to 5 miles every day. She has family in [place] who she sees regularly. [place] She maintains her own home and is able to complete all of her ADLs. Objective/Medical Story: She was admitted to the hospital yesterday for IV antibiotics after infection of the traumatic wound. She does not have any existing comorbidities. She sees her primary care provider, Amber Mcdonald at least once a year. She has some hyperlipidemia for which she should probably take a statin but chooses not to. Otherwise she has no comorbidities. Goals of Care: To maintain a functional active lifestyle. Plan: POLST form was introduced and explained to the patient. She does have a designated medical decision maker, her daughter Raquel Nguyen, who is listed in the demographics section of her chart. She would like to take the POLST form home and discuss it further with her primary care provider. Additional Discussion: This patient will remain full code by default. She will engaged in advance care planning discussion with her primary care provider. She was educated regarding the utility of the Medicare annual wellness visit and how this visit can be used as a platform for advance care planning. Code Status: Attempt Resuscitation Time spent on advance care plannin min
[2023-10-22 14:31] VITALS: BP 138/60; O2SAT 98
== END 2023-10-22 14:55 | disposition home or self-care (01) ==
LOC: ED 07:50 → MS2 13:11
PROVIDERS: ADMIT Physician Assistant Medical; ATTEND Physician Assistant Medical
DX: L03.114 Cellulitis of left upper limb (principal); S61.512A Laceration without foreign body of left wrist, initial encounter; W26.8XXA Contact with other sharp object(s), not elsewhere classified, initial encounter
CPT/HCPCS: 36415; 80048; 80053; 85025; 87040; 87070; 87077; 87181; 87205; 96365; 96366; 96367; 96375; 96376; 99284; 99285; A9270; G0378; J1170; J1200; J3370

== ENCOUNTER 2023-10-24 13:23 | Outpatient (CLI) | payer MEDICARE ==
--- NOTE | 2023-10-24 14:17 | XRAY Report ---
PROCEDURE: Wrist 3+V LT INDICATIONS: LEFT WRIST PAIN TECHNIQUE: 3 views of the wrist were acquired. COMPARISON: None. FINDINGS: Bones: No acute fractures or dislocations. No suspicious bony lesions. Mild degenerative changes are seen in the 1st carpometacarpal and triscaphe joints as well as the 1st metacarpophalangeal joint . Soft tissues: Mild nonspecific soft tissue edema surrounding the wrist. Overlying dressing material is present. No definite radiopaque foreign body. IMPRESSION: No acute bony abnormality. Mild nonspecific soft tissue edema surrounding the wrist. Reviewed by: Randall Connor MD on 10/24/2023 2:16 PM PDT Approved by: Randall Connor MD on 10/24/2023 2:16 PM PDT Station ID: [id number]
== END 2023-10-24 13:24 | disposition home or self-care (01) ==
LOC: DI 13:23
PROVIDERS: ATTEND Orthopaedic Surgery
DX: M18.12 Unilateral primary osteoarthritis of first carpometacarpal joint, left hand (principal); M19.032 Primary osteoarthritis, left wrist